=== PATIENT | female | born 1940 | race Caucasian/White ===

== ENCOUNTER 2018-03-17 12:19 | Outpatient (CLI) | payer OTHER ==
[~2018-03-17 12:19] MED LIST: ALTACE1.25 M1; CHEST CONG100 MG/51 PO; GLIMEPIRIDE1 MG; KEFLEX500 MG PO; LIPITOR20 MG; TESSALON PERLE100 M1 PO
== END 2018-03-17 13:00 | disposition home or self-care (01) ==
LOC: NUCLEAR 12:19
DX: I87.9 Disorder of vein, unspecified (principal)

== ENCOUNTER 2018-08-25 08:34 | Outpatient (CLI) | payer OTHER | END 2018-08-25 11:56 | disposition home or self-care (01) | LOC: TOM 08:34 → NUCLEAR 09-01 07:30 | DX: Z12.31 Encounter for screening mammogram for malignant neoplasm of breast (principal); Z87.898 Personal history of other specified conditions ==

== ENCOUNTER 2018-09-01 07:04 | Outpatient (CLI) | payer OTHER ==
[2018-09-09] MEDS ORDERED: COZAAR25 MG PO (07:44)
== END 2018-09-01 07:15 | disposition home or self-care (01) ==
LOC: NUCLEAR 07:04
DX: R55 Syncope and collapse (principal); I10 Essential (primary) hypertension; J44.9 Chronic obstructive pulmonary disease, unspecified; E11.9 Type 2 diabetes mellitus without complications

== ENCOUNTER → 2018-09-09 | Emergency (ER) | payer OTHER ==
[~2018-09-09] VITALS: Ht 160 cm; Wt 65.8 kg
[~2018-09-09] MED LIST changes: +COZAAR25 MG PO
== END | disposition left against medical advice (07) ==
LOC: ER 06:53
DX: Z53.20 Procedure and treatment not carried out because of patient's decision for unspecified reasons (principal)

== ENCOUNTER 2018-12-28 07:58 | Outpatient (CLI) | payer OTHER | END 2018-12-28 08:02 | disposition home or self-care (01) | LOC: RAD 07:58 | DX: M12.9 Arthropathy, unspecified (principal); M19.90 Unspecified osteoarthritis, unspecified site ==

== ENCOUNTER 2019-06-11 10:05 | Emergency (ER) | payer OTHER ==
[~2019-06-11] VITALS: Ht 160 cm; Wt 72.6 kg
== END 2019-06-11 14:07 | disposition home or self-care (01) ==
LOC: ER 10:05
DX: S52.611A Displaced fracture of right ulna styloid process, initial encounter for closed fracture (principal); W18.39XA Other fall on same level, initial encounter; Y93.89 Activity, other specified; Y92.830 Public park as the place of occurrence of the external cause; Y99.8 Other external cause status

== ENCOUNTER 2019-10-06 11:21 | Outpatient (CLI) | payer OTHER | END 2019-10-06 11:22 | disposition home or self-care (01) | LOC: RAD 11:21 | DX: M25.512 Pain in left shoulder (principal) ==